=== PATIENT | female | born 1965 | race Caucasian/White ===

== ENCOUNTER → 2021-08-25 | Outpatient (CLI) | payer OTHER ==
[2021-08-25 08:35] LABS: HEMOGLOBIN 15.6 gm/dl (12.3-15.3); RED BLOOD COUNT 4.72 M/UL (4.00-5.10); WHITE BLOOD COUNT 6.5 K/UL (4.5-11.0)
[2021-08-25 08:56] LABS: BUN/CREATININE RATIO 32 (0-10)
== END ==
LOC: MAMO 07:56 → US 08:30
PROVIDERS: Nurse Practitioner Family
DX: Z12.31 Encounter for screening mammogram for malignant neoplasm of breast (principal); R53.83 Other fatigue; R10.9 Unspecified abdominal pain; E78.5 Hyperlipidemia, unspecified; R00.2 Palpitations; E55.9 Vitamin D deficiency, unspecified
CPT/HCPCS: 36415; 76700; 77063; 77067; 80053; 80061; 81001; 82150; 83690; 84439; 84443; 85025; 87077; 87086; 87186

== ENCOUNTER → 2021-09-23 | Outpatient (CLI) | payer OTHER | LOC: KOH-I 13:40 | DX: R10.9 Unspecified abdominal pain (principal); K59.00 Constipation, unspecified | CPT/HCPCS: 74176 ==